=== PATIENT | female | born 1980 | race Caucasian/White ===

== ENCOUNTER 2017-04-19 00:15 | Inpatient (IN) | payer BC ==
[2017-04-19] VITALS (10 sets, daily range): BP systolic 107–133; BP diastolic 68–85
[~2017-04-19] VITALS: Ht 175.3 cm; Wt 77.1 kg
[2017-04-19 01:18] LABS: BASO % 0 % (0-3); EOS % 0 % (0-3); HEMATOCRIT 38.5 % (36.0-47.0); HEMOGLOBIN 13.3 g/dL (12.0-15.5); LYMPH % 8 % (24-48); MEAN CORPUSCULAR HEMOGLOBIN 30 pg (25-35); MEAN CORPUSCULAR HGB CONC 35 g/dL (31-37); MEAN CORPUSCULAR VOLUME 87 fL (79-100); MONO % 6 % (0-9); NEUT % 85 % (31-73); PLATELET COUNT 277 x10^3/uL (140-400); RED BLOOD COUNT 4.41 x10^6/uL (3.50-5.40); RED CELL DISTRIBUTION WIDTH 12.7 % (11.5-14.5)
[2017-04-19 01:20] LABS: BILIRUBIN,URINE NEGATIVE (NEG); GLUCOSE,URINE NEGATIVE (NEG); NITRITE,URINE NEGATIVE (NEG); PROTEIN,URINE NEGATIVE (NEG-TRACE); UROBILINOGEN,URINE 0.2 mg/dL (0.2 mg/dL)
[2017-04-19 01:25] LABS: BACTERIA,URINE FEW /HPF (0-FEW); RBC,URINE 0 /HPF (0-2)
[2017-04-19 01:26] LABS: SQUAMOUS EPITHELIAL CELL,UR FEW /LPF
[2017-04-19 01:35] LABS: CALCIUM 8.9 mg/dL (8.5-10.1); CREATININE 0.8 mg/dL (0.6-1.0); GFR 81.2; POTASSIUM 3.7 mmol/L (3.5-5.1)
[2017-04-19] MEDS: MORPHINE SULFATE 4 MG/ML DISP.SYRIN. IV PRN ×5 (01:55→09:02)
[2017-04-19] MEDS ORDERED: MORPHINE SULFATE 4 MG/ML DISP.SYRIN. IV ONE (02:00)
[2017-04-19] MEDS ORDERED: IV NORMAL SALINE 1000ML BAG 1,000 ML IV ONE (02:00)
[2017-04-19] MEDS ORDERED: ONDANSETRON PF 4 MG/2 ML VIAL. IV ONE (02:00)
--- NOTE | 2017-04-19 02:20 | RAD ---
EXAM: Abdomen and pelvis CT without intravenous contrast. HISTORY: 36-year-old female with right flank pain, hematuria, history of stones. TECHNIQUE: Computed tomographic images of the abdomen and pelvis were obtained without contrast. Multiplanar reformatting was performed. PQRS compliance statement: One or more of the following individualized dose reduction techniques were utilized for this examination: 1. Automated exposure control 2. Adjustment of the mA and/or kV according to patient size 3. Use of iterative reconstruction technique COMPARISON: None available. FINDINGS: The lung bases demonstrate no acute finding. Detailed evaluation of the intra-abdominal and pelvic organs and vascular structures is limited secondary to lack of IV contrast. Within these limitations, the liver, spleen, gallbladder, pancreas, adrenal glands and bilateral kidneys demonstrate no focal abnormality. Specifically, no urolithiasis or hydronephrosis is seen. The GI tract demonstrates no dilated bowel loops to suggest obstruction. A tubular hyperdense structure is seen extending from the posterior aspect of the cecum which may represent an appendicolith. Distal to this hyperdense structure is suggestion of a tubular, blind-ending structure measuring 18 mm in diameter with adjacent soft tissue stranding. This likely represents an inflamed appendix, which courses posterior and superiorly within the pelvis in relation to the cecum and appendicolith. No adjacent extraluminal air nor focal fluid collection to suggest abscess is seen. Evaluation is somewhat limited given lack of oral contrast and adjacent small bowel loops present within the pelvis. Small volume of free fluid is present within the dependent portion of the pelvis. The urinary bladder is grossly unremarkable. Uterus and bilateral adnexa demonstrate no definite abnormality. No intra-abdominal or pelvic free air or significant lymphadenopathy is seen. Aorta is normal in caliber. Overlying soft tissues and visualized osseous structures demonstrate no acute or suspicious finding. IMPRESSION: CT findings suggestive of acute appendicitis, as detailed above. No evidence of urolithiasis. Electronically signed by: Alondra Beaver MD (04/19/2017 2:17 AM) [facility]
[2017-04-19] MEDS ORDERED: PROMETHAZINE 12.5 MG in IV NORMAL SALINE 50ML 50 ML IV ONE (03:00)
[2017-04-19] MEDS ORDERED: PIPERACILLIN/TAZOBACTAM 3.375 GM in IV NORMAL SALINE 50ML 50 ML IV ONE (03:00)
[2017-04-19] MEDS ORDERED: ONDANSETRON PF 4 MG/2 ML VIAL. IV PRN ×3 (03:15→14:15)
[2017-04-19 04:11] LABS: PLT ESTIMATE ADEQUATE (ADEQUATE)
--- NOTE | 2017-04-19 05:42 | PHYS DOC ---
Past Medical History Past Medical History: Kidney Stone, Migraines, Other Additional Past Medical Histor: seasonal allergies Past Surgical History: Other Additional Past Surgical Histo: sinus, lithotripsy, INGUINAL HERNIA Alcohol Use: None Drug Use: None Adult General Chief Complaint Chief Complaint: FLANK PAIN HPI HPI Patient is a 36 year old right flank pain earlier today. Pain is progressive, described moderate to severe and associated with nausea and vomiting. Patient has had history of kidney stones and states current symptoms are different. No fever chills, nausea vomiting or sweats. Patient is currently on her period and reports minimal hematuria. No prior abdominal surgeries. Review of Systems Review of Systems Review symptoms as per history of present illness. All other review symptoms are negative. Current Medications Current Medications Current Medications Medications (Trade) Dose Ordered Sig/Tawnya Start Time Stop Time Status Last Admin Dose Admin Morphine Sulfate 4 mg PRN Q15MIN PRN 04/19/17 02:00 04/19/17 04:18 4 MG Ondansetron HCl (Zofran) 4 mg 1X ONCE 04/19/17 02:00 04/19/17 02:01 DC 04/19/17 01:26 4 MG Piperacillin Sod/ Tazobactam Sod 3.375 gm/Sodium Chloride 50 ml @ 100 mls/hr 1X ONCE 04/19/17 03:00 04/19/17 03:29 DC 04/19/17 03:30 100 MLS/HR Promethazine HCl 12.5 mg/Sodium Chloride 50.5 ml @ 151.5 mls/ hr ONCE ONCE 04/19/17 03:00 04/19/17 03:19 DC 04/19/17 02:52 151.5 MLS/HR Sodium Chloride 1,000 ml @ 1,000 mls/hr 1X ONCE 04/19/17 02:00 04/19/17 02:59 DC 04/19/17 01:26 1,000 MLS/HR Allergies Allergies Allergies Coded Allergies Type Severity Reaction Last Updated Verified erythromycin base Allergy Intermediate 04/19/17 No latex Allergy Intermediate 04/19/17 No menthol Allergy Intermediate 04/19/17 No methyl salicylate Allergy Intermediate 04/19/17 No prednisone Allergy Intermediate 04/19/17 No Physical Exam Physical Exam Constitutional: Well developed, well nourished, moderate discomfort secondary to pain.. [] HENT: Normocephalic, atraumatic, bilateral external ears normal, oropharynx moist, no oral exudates, nose normal. [] Eyes: PERRLA, EOMI, conjunctiva normal, no discharge. [] Neck: Normal range of motion, no tenderness, supple, no stridor. [] Cardiovascular:Heart rate regular rhythm, no murmur [] Lungs & Thorax: Bilateral breath sounds clear to auscultation [] Abdomen: Bowel sounds normal, lower abdominal pain or tenderness.. [] Skin: Warm, dry, no erythema, no rash. [] Back: No tenderness, lower lumbar vertebral pain. Pain is not reproduced with palpation or movement.. [] Extremities: No tenderness, no cyanosis, no clubbing, ROM intact, no edema. [] Neurologic: Alert and oriented X 3, normal motor function, normal sensory function, no focal deficits noted. [] Psychologic: Affect normal, judgement normal, mood normal. [] Current Patient Data Vital Signs Vital Signs Date Time Temp Pulse Resp B/P (MAP) Pulse Ox O2 Delivery O2 Flow Rate FiO2 04/19/17 03:00 84 20 111/66 (81) 97 Room Air 04/19/17 01:00 98.8 98.8 Lab Values Laboratory Tests Test 04/19/17 00:01 04/19/17 00:23 04/19/17 00:48 POC Urine HCG, Qualitative Hcg negative (Negative) White Blood Count 12.0 x10^3/uL (4.0-11.0) H Red Blood Count 4.41 x10^6/uL (3.50-5.40) Hemoglobin 13.3 g/dL (12.0-15.5) Hematocrit 38.5 % (36.0-47.0) Mean Corpuscular Volume 87 fL (79-100) Mean Corpuscular Hemoglobin 30 pg (25-35) Mean Corpuscular Hemoglobin Concent 35 g/dL (31-37) Red Cell Distribution Width 12.7 % (11.5-14.5) Platelet Count 277 x10^3/uL (140-400) Neutrophils (%) (Auto) 85 % (31-73) H Lymphocytes (%) (Auto) 8 % (24-48) L Monocytes (%) (Auto) 6 % (0-9) Eosinophils (%) (Auto) 0 % (0-3) Basophils (%) (Auto) 0 % (0-3) Neutrophils # (Auto) 10.2 x10^3uL (1.8-7.7) H Lymphocytes # (Auto) 1.0 x10^3/uL (1.0-4.8) Monocytes # (Auto) 0.7 x10^3/uL (0.0-1.1) Eosinophils # (Auto) 0.0 x10^3/uL (0.0-0.7) Basophils # (Auto) 0.0 x10^3/uL (0.0-0.2) Segmented Neutrophils % 83 % (35-66) H Band Neutrophils % 2 % (0-9) Lymphocytes % 9 % (24-48) L Monocytes % 6 % (0-10) Platelet Estimate Adequate (ADEQUATE) Sodium Level 136 mmol/L (136-145) Potassium Level 3.7 mmol/L (3.5-5.1) Chloride Level 100 mmol/L (98-107) Carbon Dioxide Level 29 mmol/L (21-32) Anion Gap 7 (6-14) Blood Urea Nitrogen 9 mg/dL (7-20) Creatinine 0.8 mg/dL (0.6-1.0) Estimated GFR (Cockcroft-Gault) 81.2 Glucose Level 140 mg/dL (70-99) H Calcium Level 8.9 mg/dL (8.5-10.1) Urine Collection Type Unknown Urine Color Yellow Urine Clarity Clear Urine pH 8.0 Urine Specific [place] 1.020 Urine Protein Negative mg/dL (NEG-TRACE) Urine Glucose (UA) Negative mg/dL (NEG) Urine Ketones (Stick) Trace mg/dL (NEG) Urine Blood Negative (NEG) Urine Nitrite Negative (NEG) Urine Bilirubin Negative (NEG) Urine Urobilinogen Dipstick 0.2 mg/dL (0.2 mg/dL) Urine Leukocyte Esterase Negative (NEG) Urine RBC 0 /HPF (0-2) Urine WBC 1-4 /HPF (0-4) Urine Squamous Epithelial Cells Few /LPF Urine Bacteria Few /HPF (0-FEW) Urine Mucus Slight /LPF Laboratory Tests 04/19/17 00:23 Laboratory Tests 04/19/17 00:23 EKG EKG [] Radiology/Procedures Radiology/Procedures [CT abdomen pelvis: Findings of acute appendicitis per radiology report.] Course & Med Decision Making Course & Med Decision Making Pertinent Labs and Imaging studies reviewed. (See chart for details) [IV antibiotics and pain medication given. Dr. Tinoco on-call for general surgery consult. Dr. Cabral agrees to admit] Amisha Disclaimer Amisha Disclaimer This electronic medical record was generated, in whole or in part, using a voice recognition dictation system. Departure Departure Impression: Primary Impression: Acute appendicitis Disposition: ADMITTED INPATIENT Condition: STABLE Referrals: NO PCP (PCP) GABRIELLE ERNANDEZ DO Apr 19, 2017 05:41
[2017-04-19] MEDS: PIPERACILLIN/TAZOBACTAM 3.375 GM in IV NORMAL SALINE 50ML 50 ML IV SCH ×3 (06:20→22:14)
[2017-04-19] MEDS: IV NORMAL SALINE 1000ML BAG 1,000 ML IV SCH ×3 (06:20→15:54)
--- NOTE | 2017-04-19 09:21 | PDOC2 ---
CONSULT Date of Consult Date of Consult DATE: 04/19/17 TIME: 09:15 Reason for Consult Reason for Consult: abd pain, appendicitis Referring Physician Referring Physician: Roe Identification/Chief Complaint Chief Complaint right flank pain Problems: Source Source: Patient History of Present Illness Reason for Visit: 36 yo F with c/o right lower quadrant abdominal pain, flank pain for one day. Associated N/V. No previous episodes although notes history of kidney stones, this is different pain. She feels much better since admission, although still has some pain. Past Medical History CENTRAL NERVOUS SYSTEM: Migraine Rheumatologic: Other (mulitple allergies) ENT: Sincusitis Past Surgical History Past Surgical History: Other (kidney stone removal, groin hernia repair as child, multiple sinus surgeries) Family History Family History: No Significant Social History No ALCOHOL: occassional Drugs: None Lives: with Family Current Medications Current Medications Current Medications Ondansetron HCl (Zofran) 4 mg 1X ONCE IV Last administered on 04/19/17 01:26 ; Start 04/19/17 at 02:00; Stop 04/19/17 at 02:01; Status DC Sodium Chloride 1,000 ml @ 1,000 mls/hr 1X ONCE IV Last administered on 01:26; Start 04/19/17 at 02:00; Stop 04/19/17 at 02:59; Status DC Morphine Sulfate 4 mg 1X ONCE IV Last administered on 04/19/17 01:26; Start 04/19/17 at 02:00; Stop 04/19/17 at 02:01; Status DC Morphine Sulfate 4 mg PRN Q15MIN PRN IV SEVERE PAIN Last administered on 04:18; Start 04/19/17 at 02:00 Promethazine HCl 12.5 mg/Sodium Chloride 50.5 ml @ 151.5 mls/ hr ONCE ONCE IV Last administered on 04/19/17 02:52; Start 04/19/17 at 03:00; Stop 04/19/17 at 03:19; Status DC Piperacillin Sod/ Tazobactam Sod 3.375 gm/Sodium Chloride 50 ml @ 100 mls/hr 1X ONCE IV Last administered on 04/19/17 03:30; Start 04/19/17 at 03:00; Stop 04/19/17 at 03:29; Status DC Ondansetron HCl (Zofran) 4 mg PRN Q8HRS PRN IV NAUSEA/VOMITING Last administered on 04/19/17 09:01; Start 04/19/17 at 03:15; Stop 04/20/17 at 03:14 Morphine Sulfate 2 mg PRN Q2HR PRN IV SEVERE PAIN Last administered on 09:02; Start 04/19/17 at 03:15; Stop 04/20/17 at 03:14 Sodium Chloride 1,000 ml @ 150 mls/hr Q6H40M IV Last administered on 06:20; Start 04/19/17 at 03:30; Stop 04/20/17 at 03:29 Piperacillin Sod/ Tazobactam Sod 3.375 gm/Sodium Chloride 50 ml @ 100 mls/hr Q8HRS IV Last administered on 04/19/17 06:20; Start 04/19/17 at 06:00 Cefoxitin Sodium 50 ml @ 100 mls/hr OC PROC IV ; Start 04/19/17 at 09:00; Stop 04/19/17 at 09:29 Allergies Allergies: Coded Allergies: Sulfa (Sulfonamide Antibiotics) (Verified Allergy, Intermediate, 04/19/17) erythromycin base (Unverified Allergy, Intermediate, 04/19/17) latex (Unverified Allergy, Intermediate, 04/19/17) menthol (Unverified Allergy, Intermediate, 04/19/17) methyl salicylate (Unverified Allergy, Intermediate, 04/19/17) prednisone (Unverified Allergy, Intermediate, 04/19/17) ROS Gastrointestinal: Yes Nausea, Yes Vomiting, Yes Abdominal Pain Physical Exam General: Alert, Oriented X3, Cooperative, No acute distress HEENT: Atraumatic, EOMI, Mucous membr. moist/pink Lungs: Normal air movement Abdomen: Soft, Other (mild TTP RLQ and right flank) Extremities: No clubbing, No cyanosis Skin: No rashes, No breakdown Neuro: Normal speech, Sensation intact Psych/Mental Status: Mental status NL, Mood NL MUSCULOSKELETAL: No joint tenderness, No deformity Vitals VITALS Vital Signs Date Time Temp Pulse Resp B/P (MAP) Pulse Ox O2 Delivery O2 Flow Rate FiO2 04/19/17 07:00 98.7 92 16 113/71 (85) 100 Room Air 98.7 Labs Labs Laboratory Tests Test 04/19/17 00:01 04/19/17 00:23 04/19/17 00:48 Bedside Urine HCG, Qualitative Hcg negative (Negative) White Blood Count 12.0 x10^3/uL (4.0-11.0) Red Blood Count 4.41 x10^6/uL (3.50-5.40) Hemoglobin 13.3 g/dL (12.0-15.5) Hematocrit 38.5 % (36.0-47.0) Mean Corpuscular Volume 87 fL (79-100) Mean Corpuscular Hemoglobin 30 pg (25-35) Mean Corpuscular Hemoglobin Concent 35 g/dL (31-37) Red Cell Distribution Width 12.7 % (11.5-14.5) Platelet Count 277 x10^3/uL (140-400) Neutrophils (%) (Auto) 85 % (31-73) Lymphocytes (%) (Auto) 8 % (24-48) Monocytes (%) (Auto) 6 % (0-9) Eosinophils (%) (Auto) 0 % (0-3) Basophils (%) (Auto) 0 % (0-3) Neutrophils # (Auto) 10.2 x10^3uL (1.8-7.7) Lymphocytes # (Auto) 1.0 x10^3/uL (1.0-4.8) Monocytes # (Auto) 0.7 x10^3/uL (0.0-1.1) Eosinophils # (Auto) 0.0 x10^3/uL (0.0-0.7) Basophils # (Auto) 0.0 x10^3/uL (0.0-0.2) Segmented Neutrophils % 83 % (35-66) Band Neutrophils % 2 % (0-9) Lymphocytes % 9 % (24-48) Monocytes % 6 % (0-10) Platelet Estimate Adequate (ADEQUATE) Sodium Level 136 mmol/L (136-145) Potassium Level 3.7 mmol/L (3.5-5.1) Chloride Level 100 mmol/L (98-107) Carbon Dioxide Level 29 mmol/L (21-32) Anion Gap 7 (6-14) Blood Urea Nitrogen 9 mg/dL (7-20) Creatinine 0.8 mg/dL (0.6-1.0) Estimated GFR (Cockcroft-Gault) 81.2 Glucose Level 140 mg/dL (70-99) Calcium Level 8.9 mg/dL (8.5-10.1) Urine Collection Type Unknown Urine Color Yellow Urine Clarity Clear Urine pH 8.0 Urine Specific [place] 1.020 Urine Protein Negative mg/dL (NEG-TRACE) Urine Glucose (UA) Negative mg/dL (NEG) Urine Ketones (Stick) Trace mg/dL (NEG) Urine Blood Negative (NEG) Urine Nitrite Negative (NEG) Urine Bilirubin Negative (NEG) Urine Urobilinogen Dipstick 0.2 mg/dL (0.2 mg/dL) Urine Leukocyte Esterase Negative (NEG) Urine RBC 0 /HPF (0-2) Urine WBC 1-4 /HPF (0-4) Urine Squamous Epithelial Cells Few /LPF Urine Bacteria Few /HPF (0-FEW) Urine Mucus Slight /LPF Laboratory Tests Test 04/19/17 00:01 04/19/17 00:23 04/19/17 00:48 Bedside Urine HCG, Qualitative Hcg negative (Negative) White Blood Count 12.0 x10^3/uL (4.0-11.0) Red Blood Count 4.41 x10^6/uL (3.50-5.40) Hemoglobin 13.3 g/dL (12.0-15.5) Hematocrit 38.5 % (36.0-47.0) Mean Corpuscular Volume 87 fL (79-100) Mean Corpuscular Hemoglobin 30 pg (25-35) Mean Corpuscular Hemoglobin Concent 35 g/dL (31-37) Red Cell Distribution Width 12.7 % (11.5-14.5) Platelet Count 277 x10^3/uL (140-400) Neutrophils (%) (Auto) 85 % (31-73) Lymphocytes (%) (Auto) 8 % (24-48) Monocytes (%) (Auto) 6 % (0-9) Eosinophils (%) (Auto) 0 % (0-3) Basophils (%) (Auto) 0 % (0-3) Neutrophils # (Auto) 10.2 x10^3uL (1.8-7.7) Lymphocytes # (Auto) 1.0 x10^3/uL (1.0-4.8) Monocytes # (Auto) 0.7 x10^3/uL (0.0-1.1) Eosinophils # (Auto) 0.0 x10^3/uL (0.0-0.7) Basophils # (Auto) 0.0 x10^3/uL (0.0-0.2) Segmented Neutrophils % 83 % (35-66) Band Neutrophils % 2 % (0-9) Lymphocytes % 9 % (24-48) Monocytes % 6 % (0-10) Platelet Estimate Adequate (ADEQUATE) Sodium Level 136 mmol/L (136-145) Potassium Level 3.7 mmol/L (3.5-5.1) Chloride Level 100 mmol/L (98-107) Carbon Dioxide Level 29 mmol/L (21-32) Anion Gap 7 (6-14) Blood Urea Nitrogen 9 mg/dL (7-20) Creatinine 0.8 mg/dL (0.6-1.0) Estimated GFR (Cockcroft-Gault) 81.2 Glucose Level 140 mg/dL (70-99) Calcium Level 8.9 mg/dL (8.5-10.1) Urine Collection Type Unknown Urine Color Yellow Urine Clarity Clear Urine pH 8.0 Urine Specific [place] 1.020 Urine Protein Negative mg/dL (NEG-TRACE) Urine Glucose (UA) Negative mg/dL (NEG) Urine Ketones (Stick) Trace mg/dL (NEG) Urine Blood Negative (NEG) Urine Nitrite Negative (NEG) Urine Bilirubin Negative (NEG) Urine Urobilinogen Dipstick 0.2 mg/dL (0.2 mg/dL) Urine Leukocyte Esterase Negative (NEG) Urine RBC 0 /HPF (0-2) Urine WBC 1-4 /HPF (0-4) Urine Squamous Epithelial Cells Few /LPF Urine Bacteria Few /HPF (0-FEW) Urine Mucus Slight /LPF Images Images Ct c/w appendicitis Assessment/Plan Assessment/Plan Appendicitis cont abx and pain meds, improved on this regimen will plan laparoscopic appendectomy versus open R/B/A d/w pt and pt's father. Risks, including, but not limited to: bleeding, infection, damage to surrounding structures, risk of anesthesia. They appear to understand, their questions are answered and they agree to proceed. Thank you for allowing consultation with this pleasant patient. MARCELA HOOVER MD Apr 19, 2017 09:21
[2017-04-19] MEDS ORDERED: IV RINGERS,LACTATED 1000ML 1,000 ML IV SCH (10:17)
[2017-04-19] MEDS ORDERED: LIDOCAINE 1% 1 ML SYRINGE. ID PRN (10:30)
[2017-04-19] MEDS ORDERED: PROCHLORPERAZINE 10 MG/2 ML VIAL. IV PRN (10:30)
[2017-04-19] MEDS ORDERED: fentaNYL PF VIAL 100 MCG/2 ML VIAL IV PRN (10:30)
[2017-04-19] MEDS ORDERED: HYDROmorphone 2 MG/ML VIAL IV PRN (10:30)
[2017-04-19] MEDS ORDERED: MORPHINE SULFATE 2 MG/ML DISP.SYRIN. IV PRN ×2 (10:30→12:15)
--- NOTE | 2017-04-19 10:56 | ACF ---
Admit Criteria Forms Admit Criteria Forms Admit Criteria Forms ABDOMINAL PAIN Clinical Indications for Admission to Inpatient Care ( [place]/check or initial the applicable condition/criteria): Admission is indicated for ANY ONE of the following (1)(2)(3)(4)(5)(6): [ ]I. Surgery needed that cannot be performed on ambulatory basis [ ]II. Peritoneal signs present (eg, rebound tenderness, rigidity) [ ]III. Evaluation requires patient to not eat or drink for extended period ( eg, more than 24 hours). [X ]IV. Inpatient admission required[B] rather than observation care (see Abdominal Pain: Observation Care guideline as appropriate) because of ANY ONE of the following(7)(8)(9): [ ] a) Hemodynamic instability [ ]b) Severe pain requiring acute inpatient management [X]c) Identification of etiology or finding that requires inpatient care (eg, aortic dissection, free air,bowel ischemia)(10) [ ]d) Absent bowel sounds with complete ileus (11) [ ]e) Signs of intestinal obstruction[C] [ ]f) Suspected toxic [place] [ ]g) Severe electrolyte abnormalities requiring inpatient care [ ]h) High fever or infection requiring inpatient admission as indicated by ANY ONE of the following (12)(13): [ ]i) Appropriate outpatient or observation care antimicrobial treatment unavailable, not effective, or not feasible [ ]ii) Documented bacteremia [ ]iii) Temperature greater than 104.9 degrees F (40.5 degrees C) (oral) [ ]iv) Temperature greater than 103.1 degrees F (39.5 degrees C) ( oral) or less than 96.8 degrees F (36 degrees C) (rectal) that does not respond to all emergency treatment measures [ ]i) IV fluid required rather than oral rehydration to replace significant ongoing (eg, for greater than 24 hours) losses (greater than 3 L/m2 per day)(14)(15) [ ]j) Percutaneous or open drainage (eg, abscess, biliary tract) procedures [ ]k) Parenteral nutrition regimen that must be implemented on inpatient basis [ ]l) Other condition, treatment, or monitoring requiring inpatient admission Extended stay beyond goal length of stay may be needed for (1)(3)(4)(10)(16): [ ]a) Surgery (e.g., colectomy, revascularization procedure) [ ]b) Persistent abdominal pain with suspected intra-abdominal process [ ]c) Diagnosed condition requiring continued stay (e.g., pancreatitis, complicated diverticulitis) The original [facility] [employer] content created by [facility] has been revised. The portions of the content which have been revised are identified through the use of italic text, and [facility] has neither reviewed nor approved the modified material.All other unmodified content is copyright [facility]. Please see references footnoted in the original [facility] [employer] edition 2014 IRIS DEE Apr 19, 2017 10:56
[2017-04-19] MEDS ORDERED: ACETAMINOPHEN 325 MG TABLET. PO PRN (12:15)
[2017-04-19] MEDS ORDERED: hydrALAZINE 20 MG/ML VIAL. IVP PRN (12:15)
[2017-04-19] MEDS ORDERED: DOCUSATE SODIUM 100 MG CAPSULE. PO PRN (12:15)
--- NOTE | 2017-04-19 12:19 | PDOC1 ---
History and Physical Date of Admission Date of Admission 04/19/17 Identification/Chief Complaint Chief Complaint right flank pain Problems: Source Source: Chart review, Patient History of Present Illness History of Present Illness HPI HPI Patient is a 36 year old right flank pain yesterday. She had similar pain 2 weeks ago. Pt has h/o kidney stone so she thought it could be and didnot seek for medical care last time. The pain is located at RLQ, and right flank, not radiating to right groin, 8/10 , constant, with N/V. no fever, chills, cough or sob. CT showed acute appendicitis, no kidney stone. had BM yesterday , normal. Past Medical History CENTRAL NERVOUS SYSTEM: Migraine Rheumatologic: Other (mulitple allergies) ENT: Sincusitis Past Surgical History Past Surgical History: Other (kidney stone removal, groin hernia repair as child, multiple sinus surgeries) Family History Family History: No Significant Social History Smoke: No ALCOHOL: occassional Drugs: None Current Medications Current Medications Current Medications Medications (Trade) Dose Ordered Sig/Tawnya Start Time Stop Time Status Last Admin Dose Admin Cefoxitin Sodium 50 ml @ 100 mls/hr OC PROC 04/19/17 09:00 04/19/17 09:29 DC Fentanyl Citrate (Fentanyl 2ml Vial) 50 mcg PRN Q5MIN PRN 04/19/17 10:30 04/20/17 10:29 Hydromorphone HCl (Dilaudid) 0.5 mg PRN Q10MIN PRN 04/19/17 10:30 04/20/17 10:29 Lidocaine HCl 2 ml PRN 1X PRN 04/19/17 10:30 04/20/17 10:29 Morphine Sulfate 1 mg PRN Q10MIN PRN 04/19/17 10:30 04/20/17 10:29 Ondansetron HCl (Zofran) 4 mg PRN Q6HRS PRN 04/19/17 10:30 04/20/17 10:29 Piperacillin Sod/ Tazobactam Sod 3.375 gm/Sodium Chloride 50 ml @ 100 mls/hr Q8HRS 04/19/17 06:00 04/19/17 06:20 100 MLS/HR Prochlorperazine Edisylate (Compazine) 5 mg PACU PRN PRN 04/19/17 10:30 04/20/17 10:29 Promethazine HCl 12.5 mg/Sodium Chloride 50.5 ml @ 151.5 mls/ hr ONCE ONCE 04/19/17 03:00 04/19/17 03:19 DC 04/19/17 02:52 151.5 MLS/HR Ringer's Solution 1,000 ml @ 30 mls/hr Q24H 04/19/17 10:17 04/19/17 22:16 Sodium Chloride 1,000 ml @ 150 mls/hr Q6H40M 04/19/17 03:30 04/20/17 03:29 04/19/17 06:20 150 MLS/HR Allergies Allergies Allergies Coded Allergies Type Severity Reaction Last Updated Verified Sulfa (Sulfonamide Antibiotics) Allergy Intermediate 04/19/17 Yes erythromycin base Allergy Intermediate 04/19/17 No latex Allergy Intermediate 04/19/17 No menthol Allergy Intermediate 04/19/17 No methyl salicylate Allergy Intermediate 04/19/17 No prednisone Allergy Intermediate 04/19/17 No ROS Review of System CONSTITUTIONAL: No fever or chills EYES: No recent changes SKIN: No rash or itching CARDIOVASCULAR: No chest pain, syncope, palpitations, or edema RESPIRATORY: No SOB or cough GASTROINTESTINAL: + nausea, vomiting or abdominal pain NEUROLOGICAL: No headaches or weakness ENDOCRINE: No cold or heat intolerance GENITOURINARY: No urgency or frequency of urination MUSCULOSKELETAL: No back pain or joint pain LYMPHATICS: No enlarged lymph nodes PSYCHIATRIC: No anxiety or depression Physical Exam Physical Exam GEN.: No apparent distress. Alert and oriented. HEENT: Head is normocephalic, atraumatic NECK: Supple. LUNGS: Clear to auscultation. HEART: RRR, S1, S2 present. Peripheral pulses intact ABDOMEN: Soft, Positive bowel sounds. RLQ mild tenderness, no guarding or rebound. EXTREMITIES: Without any cyanosis. NEUROLOGIC: Normal speech, normal tone PSYCHIATRIC: Normal affect, normal mood. SKIN: No ulcerations Vitals Vitals Vital Signs Date Time Temp Pulse Resp B/P (MAP) Pulse Ox O2 Delivery O2 Flow Rate FiO2 04/19/17 11:00 97.7 89 16 107/68 (81) 100 Room Air 97.7 Labs Labs Laboratory Tests Test 04/19/17 00:01 04/19/17 00:23 8/23/17 00:48 Bedside Urine HCG, Qualitative Hcg negative (Negative) White Blood Count 12.0 x10^3/uL (4.0-11.0) Red Blood Count 4.41 x10^6/uL (3.50-5.40) Hemoglobin 13.3 g/dL (12.0-15.5) Hematocrit 38.5 % (36.0-47.0) Mean Corpuscular Volume 87 fL (79-100) Mean Corpuscular Hemoglobin 30 pg (25-35) Mean Corpuscular Hemoglobin Concent 35 g/dL (31-37) Red Cell Distribution Width 12.7 % (11.5-14.5) Platelet Count 277 x10^3/uL (140-400) Neutrophils (%) (Auto) 85 % (31-73) Lymphocytes (%) (Auto) 8 % (24-48) Monocytes (%) (Auto) 6 % (0-9) Eosinophils (%) (Auto) 0 % (0-3) Basophils (%) (Auto) 0 % (0-3) Neutrophils # (Auto) 10.2 x10^3uL (1.8-7.7) Lymphocytes # (Auto) 1.0 x10^3/uL (1.0-4.8) Monocytes # (Auto) 0.7 x10^3/uL (0.0-1.1) Eosinophils # (Auto) 0.0 x10^3/uL (0.0-0.7) Basophils # (Auto) 0.0 x10^3/uL (0.0-0.2) Segmented Neutrophils % 83 % (35-66) Band Neutrophils % 2 % (0-9) Lymphocytes % 9 % (24-48) Monocytes % 6 % (0-10) Platelet Estimate Adequate (ADEQUATE) Sodium Level 136 mmol/L (136-145) Potassium Level 3.7 mmol/L (3.5-5.1) Chloride Level 100 mmol/L (98-107) Carbon Dioxide Level 29 mmol/L (21-32) Anion Gap 7 (6-14) Blood Urea Nitrogen 9 mg/dL (7-20) Creatinine 0.8 mg/dL (0.6-1.0) Estimated GFR (Cockcroft-Gault) 81.2 Glucose Level 140 mg/dL (70-99) Calcium Level 8.9 mg/dL (8.5-10.1) Urine Collection Type Unknown Urine Color Yellow Urine Clarity Clear Urine pH 8.0 Urine Specific [place] 1.020 Urine Protein Negative mg/dL (NEG-TRACE) Urine Glucose (UA) Negative mg/dL (NEG) Urine Ketones (Stick) Trace mg/dL (NEG) Urine Blood Negative (NEG) Urine Nitrite Negative (NEG) Urine Bilirubin Negative (NEG) Urine Urobilinogen Dipstick 0.2 mg/dL (0.2 mg/dL) Urine Leukocyte Esterase Negative (NEG) Urine RBC 0 /HPF (0-2) Urine WBC 1-4 /HPF (0-4) Urine Squamous Epithelial Cells Few /LPF Urine Bacteria Few /HPF (0-FEW) Urine Mucus Slight /LPF Laboratory Tests Test 04/19/17 00:01 04/19/17 00:23 04/19/17 00:48 Bedside Urine HCG, Qualitative Hcg negative (Negative) White Blood Count 12.0 x10^3/uL (4.0-11.0) Red Blood Count 4.41 x10^6/uL (3.50-5.40) Hemoglobin 13.3 g/dL (12.0-15.5) Hematocrit 38.5 % (36.0-47.0) Mean Corpuscular Volume 87 fL (79-100) Mean Corpuscular Hemoglobin 30 pg (25-35) Mean Corpuscular Hemoglobin Concent 35 g/dL (31-37) Red Cell Distribution Width 12.7 % (11.5-14.5) Platelet Count 277 x10^3/uL (140-400) Neutrophils (%) (Auto) 85 % (31-73) Lymphocytes (%) (Auto) 8 % (24-48) Monocytes (%) (Auto) 6 % (0-9) Eosinophils (%) (Auto) 0 % (0-3) Basophils (%) (Auto) 0 % (0-3) Neutrophils # (Auto) 10.2 x10^3uL (1.8-7.7) Lymphocytes # (Auto) 1.0 x10^3/uL (1.0-4.8) Monocytes # (Auto) 0.7 x10^3/uL (0.0-1.1) Eosinophils # (Auto) 0.0 x10^3/uL (0.0-0.7) Basophils # (Auto) 0.0 x10^3/uL (0.0-0.2) Segmented Neutrophils % 83 % (35-66) Band Neutrophils % 2 % (0-9) Lymphocytes % 9 % (24-48) Monocytes % 6 % (0-10) Platelet Estimate Adequate (ADEQUATE) Sodium Level 136 mmol/L (136-145) Potassium Level 3.7 mmol/L (3.5-5.1) Chloride Level 100 mmol/L (98-107) Carbon Dioxide Level 29 mmol/L (21-32) Anion Gap 7 (6-14) Blood Urea Nitrogen 9 mg/dL (7-20) Creatinine 0.8 mg/dL (0.6-1.0) Estimated GFR (Cockcroft-Gault) 81.2 Glucose Level 140 mg/dL (70-99) Calcium Level 8.9 mg/dL (8.5-10.1) Urine Collection Type Unknown Urine Color Yellow Urine Clarity Clear Urine pH 8.0 Urine Specific [place] 1.020 Urine Protein Negative mg/dL (NEG-TRACE) Urine Glucose (UA) Negative mg/dL (NEG) Urine Ketones (Stick) Trace mg/dL (NEG) Urine Blood Negative (NEG) Urine Nitrite Negative (NEG) Urine Bilirubin Negative (NEG) Urine Urobilinogen Dipstick 0.2 mg/dL (0.2 mg/dL) Urine Leukocyte Esterase Negative (NEG) Urine RBC 0 /HPF (0-2) Urine WBC 1-4 /HPF (0-4) Urine Squamous Epithelial Cells Few /LPF Urine Bacteria Few /HPF (0-FEW) Urine Mucus Slight /LPF VTE Prophylaxis Ordered VTE Prophylaxis Devices: No VTE Pharmacological Prophylaxi: No Assessment/Plan Assessment/Plan abd pain with N/V. 2/2 acute appendicitis h/o kidney stone migraine SIRS, no sepsis plan: sx consulted, lap sx today npo ivf pain control need home meds dvt ppx tmr labs tmr ARIEL MUNOZ MD Apr 19, 2017 12:19
[2017-04-19] MEDS ORDERED: MORPHINE SULFATE 4 MG/ML DISP.SYRIN. IV PRN (12:30)
[2017-04-19] MEDS ORDERED: fentaNYL PF VIAL 100 MCG/2 ML VIAL ONE ×3 (12:45→14:16)
[2017-04-19] MEDS: fentaNYL PF VIAL 100 MCG/2 ML VIAL IV PRN ×5 (12:49→15:14)
[2017-04-19] MEDS ORDERED: PROPOFOL 20 ML IV ONE (12:54)
[2017-04-19] MEDS ORDERED: MIDAZOLAM HCL/PF 2 MG/2 ML VIAL. ONE (12:54)
[2017-04-19] MEDS ORDERED: DESFLURANE 61 TO 120 MINUTES IH ONE (12:54)
[2017-04-19] MEDS ORDERED: LIDOCAINE 2% PF Vial for OR 5 ML VIAL. ONE (12:55)
[2017-04-19] MEDS ORDERED: DEXAMETHASONE SOD PHOS 20 MG/5 ML VIAL. ONE (12:55)
[2017-04-19] MEDS ORDERED: ONDANSETRON PF 4 MG/2 ML VIAL. ONE (12:55)
[2017-04-19] MEDS ORDERED: BUPIVAC MPF-EPI 0.5%-1:200000 30 ML VIAL. ONE (12:56)
[2017-04-19] MEDS ORDERED: ROCURONIUM 100 MG/10 ML VIAL. ONE (12:56)
[2017-04-19] MEDS ORDERED: NEOSTIGMINE 10 MG/10 ML VIAL. ONE (13:38)
[2017-04-19] MEDS ORDERED: GLYCOPYRROLATE 1 MG/5 ML VIAL. ONE (13:39)
[2017-04-19] MEDS ORDERED: 0.9 % SODIUM CHLORIDE 10 ML DISP.SYRIN. IV PRN (14:15)
[2017-04-19] MEDS ORDERED: PROCHLORPERAZINE 10 MG/2 ML VIAL. ONE (14:15)
--- NOTE | 2017-04-19 14:24 | PDOC4 ---
OPERATIVE NOTE Date: Date: Apr 19, 2017 Pre-Op Diagnosis: Appendicitis Post-Op Diagnosis: same Procedure Performed: Laparoscopic appendectomy Surgeon: Dillan Hoover Anesthesia Type: GETA plus local Blood Loss: 50 Specimans Obtained: appendix Findings: indurated, enlarge appendix, no obvious perforation Complications: none Operative Note: Patient was taken to the OR, induced under GETA and prepped in the usual fashion. 5 mm port placed in left lower quadrant and suprapubic area and 12 port placed in supraumbilical area, all under laparoscopic guidance. The abdominal cavity was otherwise unremarkable. The right colon was very mobile. Appendix was large and indurated, no evidence of perforation. Defect created in the mesoappendix. General load [place] taken across the base of the appendix and vascular load across the mesoappendix. Clips placed on staple lines for additional hemostasis. Endocatch bag used to deliver appendix. Copious irrigation. No evidence of bleeding or other pathology. Ports removed without difficulty. Fascia repaired with 0 vicryl. Skin repaired with 4 0 monocryl. Dressing applied. Patient tolerated procedure well. Stable to PACU. All counts correct. No immediate complications. DILLAN HOOVER MD Apr 19, 2017 14:24
[2017-04-19] MEDS: IV RINGERS,LACTATED 1000ML 1,000 ML IV SCH (15:00)
[2017-04-19] MEDS: HYDROcodone/APAP 5/325MG 1 TAB TABLET PO PRN ×2 (15:48→19:46)
[2017-04-19] MEDS: traMADol 50 MG TABLET PO PRN (18:04)
[2017-04-19] MEDS: ONDANSETRON PF 4 MG/2 ML VIAL. IV PRN (19:38)
[2017-04-19] MEDS: DOCUSATE SODIUM 100 MG CAPSULE. PO SCH (21:00)
[2017-04-20] MEDS: traMADol 50 MG TABLET PO PRN ×2 (00:41→20:28)
[2017-04-20] MEDS: IV NORMAL SALINE 1000ML BAG 1,000 ML IV SCH (00:42)
[2017-04-20] MEDS: IV RINGERS,LACTATED 1000ML 1,000 ML IV SCH ×3 (00:42→20:42)
[2017-04-20 03:00] VITALS: BP 119/80
[2017-04-20] MEDS: ONDANSETRON PF 4 MG/2 ML VIAL. IV PRN ×2 (06:18→12:07)
[2017-04-20] MEDS: PIPERACILLIN/TAZOBACTAM 3.375 GM in IV NORMAL SALINE 50ML 50 ML IV SCH ×3 (06:19→22:47)
[2017-04-20 07:39] VITALS: BP 132/84
[2017-04-20] MEDS: DOCUSATE SODIUM 100 MG CAPSULE. PO SCH ×2 (08:28→20:28)
[2017-04-20] MEDS: HYDROcodone/APAP 5/325MG 1 TAB TABLET PO PRN ×2 (08:28→17:18)
[2017-04-20 09:22] LABS: BASO % 0 % (0-3); EOS % 0 % (0-3); HEMATOCRIT 35.6 % (36.0-47.0); HEMOGLOBIN 12.4 g/dL (12.0-15.5); LYMPH # 1.2 x10^3/uL (1.0-4.8); LYMPH % 11 % (24-48); MEAN CORPUSCULAR HEMOGLOBIN 30 pg (25-35); MEAN CORPUSCULAR HGB CONC 35 g/dL (31-37); MEAN CORPUSCULAR VOLUME 86 fL (79-100); MONO % 10 % (0-9); NEUT % 79 % (31-73); PLATELET COUNT 243 x10^3/uL (140-400); RED BLOOD COUNT 4.16 x10^6/uL (3.50-5.40); RED CELL DISTRIBUTION WIDTH 12.9 % (11.5-14.5); WHITE BLOOD COUNT 11.5 x10^3/uL (4.0-11.0)
[2017-04-20 09:45] LABS: CALCIUM 8.4 mg/dL (8.5-10.1); CREATININE 0.6 mg/dL (0.6-1.0); GFR 113.1; POTASSIUM 3.2 mmol/L (3.5-5.1)
--- NOTE | 2017-04-20 11:08 | PDOC ---
PROGRESS NOTES Chief Complaint Chief Complaint 1. s/p lap appy POD # 1 (04/19) 2. Post op pain 3. COnstipation History of Present Illness History of Present Illness Sore from post op site Emesis last night NOt interested in eating food yet Did walk to the bathroom today per mother Rpt WBC 11,5 from 12 on IV zosyn NO fevers PLAn: Dc IV morphine IS Add ibuprofen RTC ADAT Add percocet for pain Hopefully home chayo once up and about and less pain dw mother Vitals Vitals Vital Signs Date Time Temp Pulse Resp B/P (MAP) Pulse Ox O2 Delivery O2 Flow Rate FiO2 04/20/17 08:28 16 Room Air 04/20/17 07:39 97.7 81 132/84 (100) 100 97.7 04/19/17 14:02 10 Physical Exam General: Alert, Oriented X3, Cooperative, No acute distress Heart: Regular rate, Normal S1 Lungs: Clear Abdomen: Soft, Other (mild TTP RLQ and right flank) Extremities: No clubbing, No cyanosis Skin: No rashes, No breakdown Labs LABS Laboratory Tests Test 04/19/17 12:41 04/20/17 09:15 Glucose (Fingerstick) 97 mg/dL (70-99) White Blood Count 11.5 x10^3/uL (4.0-11.0) Red Blood Count 4.16 x10^6/uL (3.50-5.40) Hemoglobin 12.4 g/dL (12.0-15.5) Hematocrit 35.6 % (36.0-47.0) Mean Corpuscular Volume 86 fL (79-100) Mean Corpuscular Hemoglobin 30 pg (25-35) Mean Corpuscular Hemoglobin Concent 35 g/dL (31-37) Red Cell Distribution Width 12.9 % (11.5-14.5) Platelet Count 243 x10^3/uL (140-400) Neutrophils (%) (Auto) 79 % (31-73) Lymphocytes (%) (Auto) 11 % (24-48) Monocytes (%) (Auto) 10 % (0-9) Eosinophils (%) (Auto) 0 % (0-3) Basophils (%) (Auto) 0 % (0-3) Neutrophils # (Auto) 9.0 x10^3uL (1.8-7.7) Lymphocytes # (Auto) 1.2 x10^3/uL (1.0-4.8) Monocytes # (Auto) 1.2 x10^3/uL (0.0-1.1) Eosinophils # (Auto) 0.0 x10^3/uL (0.0-0.7) Basophils # (Auto) 0.0 x10^3/uL (0.0-0.2) Sodium Level 135 mmol/L (136-145) Potassium Level 3.2 mmol/L (3.5-5.1) Chloride Level 100 mmol/L (98-107) Carbon Dioxide Level 25 mmol/L (21-32) Anion Gap 10 (6-14) Blood Urea Nitrogen 4 mg/dL (7-20) Creatinine 0.6 mg/dL (0.6-1.0) Estimated GFR (Cockcroft-Gault) 113.1 Glucose Level 126 mg/dL (70-99) Calcium Level 8.4 mg/dL (8.5-10.1) Review of Systems Review of Systems nausea, abd pain, all else is neg Comment Review of Relevant I have reviewed the following items ralph (where applicable) has been applied. Labs Laboratory Tests Test 04/19/17 00:01 04/19/17 00:23 04/19/17 00:48 04/19/17 12:41 Bedside Urine HCG, Qualitative Hcg negative (Negative) White Blood Count 12.0 x10^3/uL (4.0-11.0) Red Blood Count 4.41 x10^6/uL (3.50-5.40) Hemoglobin 13.3 g/dL (12.0-15.5) Hematocrit 38.5 % (36.0-47.0) Mean Corpuscular Volume 87 fL (79-100) Mean Corpuscular Hemoglobin 30 pg (25-35) Mean Corpuscular Hemoglobin Concent 35 g/dL (31-37) Red Cell Distribution Width 12.7 % (11.5-14.5) Platelet Count 277 x10^3/uL (140-400) Neutrophils (%) (Auto) 85 % (31-73) Lymphocytes (%) (Auto) 8 % (24-48) Monocytes (%) (Auto) 6 % (0-9) Eosinophils (%) (Auto) 0 % (0-3) Basophils (%) (Auto) 0 % (0-3) Neutrophils # (Auto) 10.2 x10^3uL (1.8-7.7) Lymphocytes # (Auto) 1.0 x10^3/uL (1.0-4.8) Monocytes # (Auto) 0.7 x10^3/uL (0.0-1.1) Eosinophils # (Auto) 0.0 x10^3/uL (0.0-0.7) Basophils # (Auto) 0.0 x10^3/uL (0.0-0.2) Segmented Neutrophils % 83 % (35-66) Band Neutrophils % 2 % (0-9) Lymphocytes % 9 % (24-48) Monocytes % 6 % (0-10) Platelet Estimate Adequate (ADEQUATE) Sodium Level 136 mmol/L (136-145) Potassium Level 3.7 mmol/L (3.5-5.1) Chloride Level 100 mmol/L (98-107) Carbon Dioxide Level 29 mmol/L (21-32) Anion Gap 7 (6-14) Blood Urea Nitrogen 9 mg/dL (7-20) Creatinine 0.8 mg/dL (0.6-1.0) Estimated GFR (Cockcroft-Gault) 81.2 Glucose Level 140 mg/dL (70-99) Calcium Level 8.9 mg/dL (8.5-10.1) Urine Collection Type Unknown Urine Color Yellow Urine Clarity Clear Urine pH 8.0 Urine Specific [place] 1.020 Urine Protein Negative mg/dL (NEG-TRACE) Urine Glucose (UA) Negative mg/dL (NEG) Urine Ketones (Stick) Trace mg/dL (NEG) Urine Blood Negative (NEG) Urine Nitrite Negative (NEG) Urine Bilirubin Negative (NEG) Urine Urobilinogen Dipstick 0.2 mg/dL (0.2 mg/dL) Urine Leukocyte Esterase Negative (NEG) Urine RBC 0 /HPF (0-2) Urine WBC 1-4 /HPF (0-4) Urine Squamous Epithelial Cells Few /LPF Urine Bacteria Few /HPF (0-FEW) Urine Mucus Slight /LPF Glucose (Fingerstick) 97 mg/dL (70-99) Test 04/20/17 09:15 White Blood Count 11.5 x10^3/uL (4.0-11.0) Red Blood Count 4.16 x10^6/uL (3.50-5.40) Hemoglobin 12.4 g/dL (12.0-15.5) Hematocrit 35.6 % (36.0-47.0) Mean Corpuscular Volume 86 fL (79-100) Mean Corpuscular Hemoglobin 30 pg (25-35) Mean Corpuscular Hemoglobin Concent 35 g/dL (31-37) Red Cell Distribution Width 12.9 % (11.5-14.5) Platelet Count 243 x10^3/uL (140-400) Neutrophils (%) (Auto) 79 % (31-73) Lymphocytes (%) (Auto) 11 % (24-48) Monocytes (%) (Auto) 10 % (0-9) Eosinophils (%) (Auto) 0 % (0-3) Basophils (%) (Auto) 0 % (0-3) Neutrophils # (Auto) 9.0 x10^3uL (1.8-7.7) Lymphocytes # (Auto) 1.2 x10^3/uL (1.0-4.8) Monocytes # (Auto) 1.2 x10^3/uL (0.0-1.1) Eosinophils # (Auto) 0.0 x10^3/uL (0.0-0.7) Basophils # (Auto) 0.0 x10^3/uL (0.0-0.2) Sodium Level 135 mmol/L (136-145) Potassium Level 3.2 mmol/L (3.5-5.1) Chloride Level 100 mmol/L (98-107) Carbon Dioxide Level 25 mmol/L (21-32) Anion Gap 10 (6-14) Blood Urea Nitrogen 4 mg/dL (7-20) Creatinine 0.6 mg/dL (0.6-1.0) Estimated GFR (Cockcroft-Gault) 113.1 Glucose Level 126 mg/dL (70-99) Calcium Level 8.4 mg/dL (8.5-10.1) Laboratory Tests Test 04/19/17 12:41 04/20/17 09:15 Glucose (Fingerstick) 97 mg/dL (70-99) White Blood Count 11.5 x10^3/uL (4.0-11.0) Red Blood Count 4.16 x10^6/uL (3.50-5.40) Hemoglobin 12.4 g/dL (12.0-15.5) Hematocrit 35.6 % (36.0-47.0) Mean Corpuscular Volume 86 fL (79-100) Mean Corpuscular Hemoglobin 30 pg (25-35) Mean Corpuscular Hemoglobin Concent 35 g/dL (31-37) Red Cell Distribution Width 12.9 % (11.5-14.5) Platelet Count 243 x10^3/uL (140-400) Neutrophils (%) (Auto) 79 % (31-73) Lymphocytes (%) (Auto) 11 % (24-48) Monocytes (%) (Auto) 10 % (0-9) Eosinophils (%) (Auto) 0 % (0-3) Basophils (%) (Auto) 0 % (0-3) Neutrophils # (Auto) 9.0 x10^3uL (1.8-7.7) Lymphocytes # (Auto) 1.2 x10^3/uL (1.0-4.8) Monocytes # (Auto) 1.2 x10^3/uL (0.0-1.1) Eosinophils # (Auto) 0.0 x10^3/uL (0.0-0.7) Basophils # (Auto) 0.0 x10^3/uL (0.0-0.2) Sodium Level 135 mmol/L (136-145) Potassium Level 3.2 mmol/L (3.5-5.1) Chloride Level 100 mmol/L (98-107) Carbon Dioxide Level 25 mmol/L (21-32) Anion Gap 10 (6-14) Blood Urea Nitrogen 4 mg/dL (7-20) Creatinine 0.6 mg/dL (0.6-1.0) Estimated GFR (Cockcroft-Gault) 113.1 Glucose Level 126 mg/dL (70-99) Calcium Level 8.4 mg/dL (8.5-10.1) Medications Current Medications Ondansetron HCl (Zofran) 4 mg 1X ONCE IV Last administered on 04/19/17t 01:26 ; Start 04/19/17 at 02:00; Stop 04/19/17 at 02:01; Status DC Sodium Chloride 1,000 ml @ 1,000 mls/hr 1X ONCE IV Last administered on 01:26; Start 04/19/17 at 02:00; Stop 04/19/17 at 02:59; Status DC Morphine Sulfate 4 mg 1X ONCE IV Last administered on 04/19/17 01:26; Start 04/19/17 at 02:00; Stop 04/19/17 at 02:01; Status DC Morphine Sulfate 4 mg PRN Q15MIN PRN IV SEVERE PAIN Last administered on 04:18; Start 04/19/17 at 02:00; Stop 04/19/17 at 12:17; Status DC Promethazine HCl 12.5 mg/Sodium Chloride 50.5 ml @ 151.5 mls/ hr ONCE ONCE IV Last administered on 04/19/17 02:52; Start 04/19/17 at 03:00; Stop 04/19/17 at 03:19; Status DC Piperacillin Sod/ Tazobactam Sod 3.375 gm/Sodium Chloride 50 ml @ 100 mls/hr 1X ONCE IV Last administered on 04/19/17 03:30; Start 04/19/17 at 03:00; Stop 04/19/17 at 03:29; Status DC Ondansetron HCl (Zofran) 4 mg PRN Q8HRS PRN IV NAUSEA/VOMITING Last administered on 04/19/17 09:01; Start 04/19/17 at 03:15; Stop 04/20/17 at 03:14 ; Status DC Morphine Sulfate 2 mg PRN Q2HR PRN IV SEVERE PAIN Last administered on 09:02; Start 04/19/17 at 03:15; Stop 04/20/17 at 03:14; Status DC Sodium Chloride 1,000 ml @ 150 mls/hr Q6H40M IV Last administered on 00:42; Start 04/19/17 at 03:30; Stop 04/20/17 at 03:29; Status DC Piperacillin Sod/ Tazobactam Sod 3.375 gm/Sodium Chloride 50 ml @ 100 mls/hr Q8HRS IV Last administered on 04/20/17 06:19; Start 04/19/17 at 06:00 Cefoxitin Sodium 50 ml @ 100 mls/hr OC PROC IV Last administered on 13:15; Start 04/19/17 at 09:00; Stop 04/19/17 at 09:29; Status DC Ondansetron HCl (Zofran) 4 mg PRN Q6HRS PRN IV NAUSEA/VOMITING; Start 04/19/17 at 10:30; Stop 04/20/17 at 10:29; Status DC Fentanyl Citrate (Fentanyl 2ml Vial) 25 mcg PRN Q5MIN PRN IV MILD PAIN; Start 04/19/17 at 10:30; Stop 04/20/17 at 10:29; Status DC Fentanyl Citrate (Fentanyl 2ml Vial) 50 mcg PRN Q5MIN PRN IV MODERATE PAIN Last administered on 04/19/17 15:14; Start 04/19/17 at 10:30; Stop 04/20/17 at 10:29; Status DC Morphine Sulfate 1 mg PRN Q10MIN PRN IV SEVERE PAIN; Start 04/19/17 at 10:30; Stop 04/20/17 at 10:29; Status DC Ringer's Solution 1,000 ml @ 30 mls/hr Q24H IV Last administered on 04/19/17 12:23; Start 04/19/17 at 10:17; Stop 04/19/17 at 22:16; Status DC Lidocaine HCl 2 ml PRN 1X PRN ID PRIOR TO IV START; Start 04/19/17 at 10:30; Stop 04/20/17 at 10:29; Status DC Hydromorphone HCl (Dilaudid) 0.5 mg PRN Q10MIN PRN IV SEV PAIN, Second choice; Start 04/19/17 at 10:30; Stop 04/20/17 at 10:29; Status DC Prochlorperazine Edisylate (Compazine) 5 mg PACU PRN PRN IV NAUSEA, MRX1 Last administered on 04/19/17 14:20; Start 04/19/17 at 10:30; Stop 04/20/17 at 10:29 ; Status DC Acetaminophen (Tylenol) 650 mg PRN Q6HRS PRN PO FEVER; Start 04/19/17 at 12:15 Ondansetron HCl (Zofran) 4 mg PRN Q6HRS PRN IV NAUSEA/VOMITING Last administered on 04/20/17 06:18; Start 04/19/17 at 12:15 Morphine Sulfate 2 mg PRN Q2HR PRN IV PAIN; Start 04/19/17 at 12:15; Stop 04/19 at 12:18; Status DC Tramadol HCl (Ultram) 50 mg PRN Q6HRS PRN PO PAIN Last administered on t 00:41; Start 04/19/17 at 12:15 Hydralazine HCl (Apresoline) 10 mg PRN Q4HRS PRN IVP ELEVATED BP, SEE COMMENTS ; Start 04/19/17 at 12:15 Docusate Sodium (Colace) 100 mg PRN DAILY PRN PO CONSTIPATION; Start 04/19/17 at 12:15 Morphine Sulfate 2 mg PRN Q2HR PRN IV PAIN; Start 04/19/17 at 12:30 Fentanyl Citrate (Fentanyl 2ml Vial) 100 mcg STK-MED ONCE .ROUTE ; Start at 12:45; Stop 04/19/17 at 12:48; Status DC Fentanyl Citrate (Fentanyl 2ml Vial) 50 mcg PACU PRN PRN IV PAIN Last administered on 04/19/17t 13:03; Start 04/19/17 at 13:00 Midazolam HCl (Versed) 2 mg STK-MED ONCE .ROUTE ; Start 04/19/17 at 12:54; Stop 04/19/17 at 12:55; Status DC Fentanyl Citrate (Fentanyl 2ml Vial) 100 mcg STK-MED ONCE .ROUTE ; Start at 12:54; Stop 04/19/17 at 12:55; Status DC Desflurane (Suprane) 60 ml STK-MED ONCE IH ; Start 04/19/17 at 12:54; Stop 04/19 at 12:55; Status DC Propofol 20 ml @ As Directed STK-MED ONCE IV ; Start 04/19/17 at 12:54; Stop at 12:55; Status DC Dexamethasone Sodium Phosphate (Decadron) 20 mg STK-MED ONCE .ROUTE ; Start at 12:55; Stop 04/19/17 at 12:56; Status DC Ondansetron HCl (Zofran) 4 mg STK-MED ONCE .ROUTE ; Start 04/19/17 at 12:55; Stop 04/19/17 at 12:56; Status DC Lidocaine HCl (Lidocaine Pf 2% Vial) 5 ml STK-MED ONCE .ROUTE ; Start 04/19/17 at 12:55; Stop 04/19/17 at 12:56; Status DC Bupivacaine HCl/ Epinephrine Bitart (Sensorcain-Mpf Epi 0.5%-[id number]) 30 ml STK -MED ONCE .ROUTE Last administered on 04/19/17 14:19; Start 04/19/17 at 12:56 ; Stop 04/19/17 at 12:57; Status DC Rocuronium [place] (Zemuron) 100 mg STK-MED ONCE .ROUTE ; Start 04/19/17 at 12: 56; Stop 04/19/17 at 12:57; Status DC Neostigmine Methylsulfate (Bloxiverz) 10 mg STK-MED ONCE .ROUTE ; Start at 13:38; Stop 04/19/17 at 13:39; Status DC Glycopyrrolate (Robinul) 1 mg STK-MED ONCE .ROUTE ; Start 04/19/17 at 13:39; Stop 04/19/17 at 13:40; Status DC Prochlorperazine Edisylate (Compazine) 10 mg STK-MED ONCE .ROUTE ; Start at 14:15; Stop 04/19/17 at 14:16; Status DC Fentanyl Citrate (Fentanyl 2ml Vial) 100 mcg STK-MED ONCE .ROUTE ; Start at 14:16; Stop 04/19/17 at 14:17; Status DC Sodium Chloride (Normal Saline Flush) 3 ml QSHIFT PRN IV AFTER MEDS AND BLOOD DRAWS; Start 04/19/17 at 14:15 Ringer's Solution 1,000 ml @ 100 mls/hr Q10H IV ; Start 04/19/17 at 15:00 Acetaminophen/ Hydrocodone Bitart (Lortab 5/325) 1 tab PRN Q4HRS PRN PO MILD PAIN Last administered on 04/20/17 08:28; Start 04/19/17 at 14:15 Docusate Sodium (Colace) 100 mg BID PO Last administered on 04/20/17 08:28; Start 04/19/17 at 21:00 Ondansetron HCl (Zofran) 4 mg PRN Q6HRS PRN IV NAUESA, 1ST CHOICE; Start at 14:15; Status UNV Levofloxacin/ Dextrose 150 ml @ As Directed STK-MED ONCE IV ; Start 04/20/17 at 00:51; Stop 04/20/17 at 00:52; Status DC Vitals/I & O Vital Sign - Last 24 Hours 04/19/17 04/19/17 04/19/17 04/19/17 12:18 12:49 13:03 14:02 Temp 97.7 98.0 97.7 98.0 Pulse 95 53 Resp 15 15 15 16 B/P (MAP) 113/76 91/60 Pulse Ox 100 100 100 100 O2 Delivery Room Air Room Air Room Air Simple Mask O2 Flow Rate 10 04/19/17 04/19/17 04/19/17 04/19/17 14:17 14:30 14:32 14:47 Pulse 54 54 62 Resp 16 15 16 14 B/P (MAP) 97/65 103/60 116/67 Pulse Ox 100 100 98 O2 Delivery Room Air Room Air Room Air Room Air 04/19/17 04/19/17 04/19/17 04/19/17 14:53 15:02 15:27 15:45 Temp 98.0 97.6 98.0 97.6 Pulse 72 91 93 Resp 17 16 16 16 B/P (MAP) 113/60 117/75 (89) 113/74 (87) Pulse Ox 98 99 97 O2 Delivery Room Air Room Air Room Air Room Air 04/19/17 04/19/17 04/19/17 04/19/17 16:00 16:15 16:30 16:45 Pulse 90 86 84 87 Resp 16 16 16 16 B/P (MAP) 120/80 (93) 126/79 (95) 133/74 (93) Pulse Ox 98 98 98 97 O2 Delivery Room Air Room Air Room Air Room Air 04/19/17 04/19/17 04/19/17 04/19/17 17:00 19:00 19:46 20:00 Temp 97.5 97.5 Pulse 87 94 Resp 16 16 16 B/P (MAP) 118/79 (92) 127/85 (99) Pulse Ox 96 100 O2 Delivery Room Air Room Air Room Air Room Air 8/23/17 04/19/17 04/20/17 04/20/17 20:45 23:00 00:41 01:40 Temp 98.6 98.6 Pulse 88 Resp 16 18 16 16 B/P (MAP) 125/79 (94) Pulse Ox 98 O2 Delivery Room Air Room Air Room Air Room Air 04/20/17 04/20/17 04/20/17 04/20/17 03:00 07:39 08:00 08:28 Temp 97.9 97.7 97.9 97.7 Pulse 83 81 Resp 18 18 16 B/P (MAP) 119/80 (93) 132/84 (100) Pulse Ox 97 100 O2 Delivery Room Air Room Air Room Air Room Air Intake and Output 04/19/17 04/19/17 04/20/17 15:00 23:00 07:00 Intake Total 730 ml 1361 ml Output Total 100 ml Balance 630 ml 1361 ml RODDY HAAS MD Apr 20, 2017 11:08
[2017-04-20] MEDS ORDERED: MAGNESIUM HYDROXIDE 2,400 MG/30 ML ORAL.SUSP. PO PRN ×2 (11:15→12:00)
[2017-04-20 11:28] VITALS: BP 128/80
[2017-04-20] MEDS ORDERED: KETOROLAC TROMETHAMINE 30 MG/ML INJ. IV ONE (11:30)
[2017-04-20] MEDS ORDERED: KETOROLAC 15 MG/ML VIAL. IV PRN (11:30)
[2017-04-20] MEDS ORDERED: MAGNESIUM HYDROXIDE 2,400 MG/30 ML ORAL.SUSP. PO ONE ×2 (11:45→12:00)
[2017-04-20] MEDS ORDERED: POLYETHYLENE GLYCOL 3350 17 GM PACKET. PO ONE (12:00)
[2017-04-20] MEDS ORDERED: POLYETHYLENE GLYCOL 3350 17 GM PACKET. PO SCH (12:00)
--- NOTE | 2017-04-20 12:52 | PDOC ---
SURGICAL PROGRESS NOTE Subjective n/v this am some flatus pain managed Vital Signs Vital Signs Date Time Temp Pulse Resp B/P (MAP) Pulse Ox O2 Delivery O2 Flow Rate FiO2 04/20/17 11:28 97.9 76 18 128/80 (96) 99 Room Air 97.9 04/19/17 14:02 10 I&O Intake and Output 04/20/17 07:00 Intake Total 2091 ml Output Total 100 ml Balance 1991 ml Intake Oral 430 ml IV Total 1661 ml Output Emesis 100 ml # Voids 5 General: Alert, Oriented X3, Cooperative, No acute distress Abdomen: Soft, Other (lap sites c/d/i, no erythema ) Labs Laboratory Tests Test 04/19/17 00:01 04/19/17 00:23 04/19/17 00:48 04/19/17 12:41 Bedside Urine HCG, Qualitative Hcg negative (Negative) White Blood Count 12.0 x10^3/uL (4.0-11.0) Red Blood Count 4.41 x10^6/uL (3.50-5.40) Hemoglobin 13.3 g/dL (12.0-15.5) Hematocrit 38.5 % (36.0-47.0) Mean Corpuscular Volume 87 fL (79-100) Mean Corpuscular Hemoglobin 30 pg (25-35) Mean Corpuscular Hemoglobin Concent 35 g/dL (31-37) Red Cell Distribution Width 12.7 % (11.5-14.5) Platelet Count 277 x10^3/uL (140-400) Neutrophils (%) (Auto) 85 % (31-73) Lymphocytes (%) (Auto) 8 % (24-48) Monocytes (%) (Auto) 6 % (0-9) Eosinophils (%) (Auto) 0 % (0-3) Basophils (%) (Auto) 0 % (0-3) Neutrophils # (Auto) 10.2 x10^3uL (1.8-7.7) Lymphocytes # (Auto) 1.0 x10^3/uL (1.0-4.8) Monocytes # (Auto) 0.7 x10^3/uL (0.0-1.1) Eosinophils # (Auto) 0.0 x10^3/uL (0.0-0.7) Basophils # (Auto) 0.0 x10^3/uL (0.0-0.2) Segmented Neutrophils % 83 % (35-66) Band Neutrophils % 2 % (0-9) Lymphocytes % 9 % (24-48) Monocytes % 6 % (0-10) Platelet Estimate Adequate (ADEQUATE) Sodium Level 136 mmol/L (136-145) Potassium Level 3.7 mmol/L (3.5-5.1) Chloride Level 100 mmol/L (98-107) Carbon Dioxide Level 29 mmol/L (21-32) Anion Gap 7 (6-14) Blood Urea Nitrogen 9 mg/dL (7-20) Creatinine 0.8 mg/dL (0.6-1.0) Estimated GFR (Cockcroft-Gault) 81.2 Glucose Level 140 mg/dL (70-99) Calcium Level 8.9 mg/dL (8.5-10.1) Urine Collection Type Unknown Urine Color Yellow Urine Clarity Clear Urine pH 8.0 Urine Specific [place] 1.020 Urine Protein Negative mg/dL (NEG-TRACE) Urine Glucose (UA) Negative mg/dL (NEG) Urine Ketones (Stick) Trace mg/dL (NEG) Urine Blood Negative (NEG) Urine Nitrite Negative (NEG) Urine Bilirubin Negative (NEG) Urine Urobilinogen Dipstick 0.2 mg/dL (0.2 mg/dL) Urine Leukocyte Esterase Negative (NEG) Urine RBC 0 /HPF (0-2) Urine WBC 1-4 /HPF (0-4) Urine Squamous Epithelial Cells Few /LPF Urine Bacteria Few /HPF (0-FEW) Urine Mucus Slight /LPF Glucose (Fingerstick) 97 mg/dL (70-99) Test 04/20/17 09:15 White Blood Count 11.5 x10^3/uL (4.0-11.0) Red Blood Count 4.16 x10^6/uL (3.50-5.40) Hemoglobin 12.4 g/dL (12.0-15.5) Hematocrit 35.6 % (36.0-47.0) Mean Corpuscular Volume 86 fL (79-100) Mean Corpuscular Hemoglobin 30 pg (25-35) Mean Corpuscular Hemoglobin Concent 35 g/dL (31-37) Red Cell Distribution Width 12.9 % (11.5-14.5) Platelet Count 243 x10^3/uL (140-400) Neutrophils (%) (Auto) 79 % (31-73) Lymphocytes (%) (Auto) 11 % (24-48) Monocytes (%) (Auto) 10 % (0-9) Eosinophils (%) (Auto) 0 % (0-3) Basophils (%) (Auto) 0 % (0-3) Neutrophils # (Auto) 9.0 x10^3uL (1.8-7.7) Lymphocytes # (Auto) 1.2 x10^3/uL (1.0-4.8) Monocytes # (Auto) 1.2 x10^3/uL (0.0-1.1) Eosinophils # (Auto) 0.0 x10^3/uL (0.0-0.7) Basophils # (Auto) 0.0 x10^3/uL (0.0-0.2) Sodium Level 135 mmol/L (136-145) Potassium Level 3.2 mmol/L (3.5-5.1) Chloride Level 100 mmol/L (98-107) Carbon Dioxide Level 25 mmol/L (21-32) Anion Gap 10 (6-14) Blood Urea Nitrogen 4 mg/dL (7-20) Creatinine 0.6 mg/dL (0.6-1.0) Estimated GFR (Cockcroft-Gault) 113.1 Glucose Level 126 mg/dL (70-99) Calcium Level 8.4 mg/dL (8.5-10.1) Laboratory Tests Test 04/20/17 09:15 White Blood Count 11.5 x10^3/uL (4.0-11.0) Red Blood Count 4.16 x10^6/uL (3.50-5.40) Hemoglobin 12.4 g/dL (12.0-15.5) Hematocrit 35.6 % (36.0-47.0) Mean Corpuscular Volume 86 fL (79-100) Mean Corpuscular Hemoglobin 30 pg (25-35) Mean Corpuscular Hemoglobin Concent 35 g/dL (31-37) Red Cell Distribution Width 12.9 % (11.5-14.5) Platelet Count 243 x10^3/uL (140-400) Neutrophils (%) (Auto) 79 % (31-73) Lymphocytes (%) (Auto) 11 % (24-48) Monocytes (%) (Auto) 10 % (0-9) Eosinophils (%) (Auto) 0 % (0-3) Basophils (%) (Auto) 0 % (0-3) Neutrophils # (Auto) 9.0 x10^3uL (1.8-7.7) Lymphocytes # (Auto) 1.2 x10^3/uL (1.0-4.8) Monocytes # (Auto) 1.2 x10^3/uL (0.0-1.1) Eosinophils # (Auto) 0.0 x10^3/uL (0.0-0.7) Basophils # (Auto) 0.0 x10^3/uL (0.0-0.2) Sodium Level 135 mmol/L (136-145) Potassium Level 3.2 mmol/L (3.5-5.1) Chloride Level 100 mmol/L (98-107) Carbon Dioxide Level 25 mmol/L (21-32) Anion Gap 10 (6-14) Blood Urea Nitrogen 4 mg/dL (7-20) Creatinine 0.6 mg/dL (0.6-1.0) Estimated GFR (Cockcroft-Gault) 113.1 Glucose Level 126 mg/dL (70-99) Calcium Level 8.4 mg/dL (8.5-10.1) Problem List s/p lap appy await improvement in PO intake IS, ambulate Problems: KIRSTEN HERNANDEZ APRN Apr 20, 2017 12:52
[2017-04-20] MEDS: IBUPROFEN 600 MG TABLET. PO SCH ×2 (14:29→20:27)
[2017-04-20 15:32] VITALS: BP 114/71
[2017-04-20 19:00] VITALS: BP 101/63
[2017-04-20] MEDS ORDERED: SUMA100T3 PO (20:40)
[2017-04-20] MEDS ORDERED: DOXE50CA PO ×2 (20:40)
[2017-04-20] MEDS ORDERED: LORA5SOL7 PO (20:40)
[2017-04-20] MEDS ORDERED: DIPH25CA58 PO (20:40)
[2017-04-20] MEDS ORDERED: FEXO180T81 PO (20:40)
[2017-04-20] MEDS ORDERED: METO10TA81 PO (20:40)
[2017-04-20] MEDS ORDERED: B2/M1TAB PO (20:40)
[2017-04-20] MEDS ORDERED: MELO7.5O PO (20:40)
[2017-04-20] MEDS ORDERED: ONAB100V IJ (20:40)
[2017-04-20] MEDS ORDERED: BUTT75CA PO (20:40)
[2017-04-20] MEDS ORDERED: CETI10TA22 PO (20:40)
[2017-04-20] MEDS ORDERED: DOCUSATE SODIUM 100 MG CAPSULE. PO SCH (21:00)
[2017-04-20 23:15] VITALS: BP 102/58
[2017-04-21 03:00] VITALS: BP 111/72
[2017-04-21] MEDS: PIPERACILLIN/TAZOBACTAM 3.375 GM in IV NORMAL SALINE 50ML 50 ML IV SCH (06:19)
[2017-04-21] MEDS: traMADol 50 MG TABLET PO PRN (06:24)
[2017-04-21 07:00] VITALS: BP 107/69
[2017-04-21] MEDS ORDERED: POLYETHYLENE GLYCOL 3350 17 GM PACKET. PO SCH (09:00)
[2017-04-21] MEDS: IBUPROFEN 600 MG TABLET. PO SCH (09:29)
[2017-04-21] MEDS: DOCUSATE SODIUM 100 MG CAPSULE. PO SCH (09:29)
--- NOTE | 2017-04-21 09:45 | PDOC ---
SURGICAL PROGRESS NOTE Subjective Pt feels much better, lyndsey PO well, passing flatus, min pain Vital Signs Vital Signs Date Time Temp Pulse Resp B/P (MAP) Pulse Ox O2 Delivery O2 Flow Rate FiO2 04/21/17 07:45 Room Air 04/21/17 07:00 98.4 91 19 107/69 (82) 95 98.4 I&O Intake and Output 04/21/17 07:00 Intake Total 2250 ml Balance 2250 ml Intake Oral 2250 ml # Voids 10 General: Alert, Oriented X3, Cooperative, No acute distress Abdomen: Soft, No tenderness, Other (dressing c/d/i) Labs Laboratory Tests Test 04/19/17 12:41 04/20/17 09:15 Glucose (Fingerstick) 97 mg/dL (70-99) White Blood Count 11.5 x10^3/uL (4.0-11.0) Red Blood Count 4.16 x10^6/uL (3.50-5.40) Hemoglobin 12.4 g/dL (12.0-15.5) Hematocrit 35.6 % (36.0-47.0) Mean Corpuscular Volume 86 fL (79-100) Mean Corpuscular Hemoglobin 30 pg (25-35) Mean Corpuscular Hemoglobin Concent 35 g/dL (31-37) Red Cell Distribution Width 12.9 % (11.5-14.5) Platelet Count 243 x10^3/uL (140-400) Neutrophils (%) (Auto) 79 % (31-73) Lymphocytes (%) (Auto) 11 % (24-48) Monocytes (%) (Auto) 10 % (0-9) Eosinophils (%) (Auto) 0 % (0-3) Basophils (%) (Auto) 0 % (0-3) Neutrophils # (Auto) 9.0 x10^3uL (1.8-7.7) Lymphocytes # (Auto) 1.2 x10^3/uL (1.0-4.8) Monocytes # (Auto) 1.2 x10^3/uL (0.0-1.1) Eosinophils # (Auto) 0.0 x10^3/uL (0.0-0.7) Basophils # (Auto) 0.0 x10^3/uL (0.0-0.2) Sodium Level 135 mmol/L (136-145) Potassium Level 3.2 mmol/L (3.5-5.1) Chloride Level 100 mmol/L (98-107) Carbon Dioxide Level 25 mmol/L (21-32) Anion Gap 10 (6-14) Blood Urea Nitrogen 4 mg/dL (7-20) Creatinine 0.6 mg/dL (0.6-1.0) Estimated GFR (Cockcroft-Gault) 113.1 Glucose Level 126 mg/dL (70-99) Calcium Level 8.4 mg/dL (8.5-10.1) Problem List s/p lap appendectomy OK to d/c F/u with [facility] in two weeks Problems: MARCELA HOOVER MD Apr 21, 2017 09:45
--- NOTE | 2017-04-21 10:38 | PDOC3 ---
Discharge Summary Visit Information Date of Admission: Apr 19, 2017 Date of Discharge: Apr 21, 2017 Admitting Diagnosis Comment: 1. s/p lap appy POD # 2 (04/19) 2. Post op pain 3. COnstipation Brief Hospital Course Allergies Allergies Coded Allergies Type Severity Reaction Last Updated Verified Sulfa (Sulfonamide Antibiotics) Allergy Intermediate 04/19/17 Yes erythromycin base Allergy Intermediate 04/20/17 Yes latex Allergy Intermediate 04/20/17 Yes menthol Allergy Intermediate 04/20/17 Yes methyl salicylate Allergy Intermediate 04/20/17 Yes prednisone Allergy Intermediate 04/20/17 Yes Vital Signs Vital Signs Date Time Temp Pulse Resp B/P (MAP) Pulse Ox O2 Delivery O2 Flow Rate FiO2 04/21/17 07:55 Room Air 04/21/17 07:00 98.4 91 19 107/69 (82) 95 98.4 Lab Results Laboratory Tests Test 04/19/17 12:41 04/20/17 09:15 Glucose (Fingerstick) 97 mg/dL (70-99) White Blood Count 11.5 x10^3/uL (4.0-11.0) Red Blood Count 4.16 x10^6/uL (3.50-5.40) Hemoglobin 12.4 g/dL (12.0-15.5) Hematocrit 35.6 % (36.0-47.0) Mean Corpuscular Volume 86 fL (79-100) Mean Corpuscular Hemoglobin 30 pg (25-35) Mean Corpuscular Hemoglobin Concent 35 g/dL (31-37) Red Cell Distribution Width 12.9 % (11.5-14.5) Platelet Count 243 x10^3/uL (140-400) Neutrophils (%) (Auto) 79 % (31-73) Lymphocytes (%) (Auto) 11 % (24-48) Monocytes (%) (Auto) 10 % (0-9) Eosinophils (%) (Auto) 0 % (0-3) Basophils (%) (Auto) 0 % (0-3) Neutrophils # (Auto) 9.0 x10^3uL (1.8-7.7) Lymphocytes # (Auto) 1.2 x10^3/uL (1.0-4.8) Monocytes # (Auto) 1.2 x10^3/uL (0.0-1.1) Eosinophils # (Auto) 0.0 x10^3/uL (0.0-0.7) Basophils # (Auto) 0.0 x10^3/uL (0.0-0.2) Sodium Level 135 mmol/L (136-145) Potassium Level 3.2 mmol/L (3.5-5.1) Chloride Level 100 mmol/L (98-107) Carbon Dioxide Level 25 mmol/L (21-32) Anion Gap 10 (6-14) Blood Urea Nitrogen 4 mg/dL (7-20) Creatinine 0.6 mg/dL (0.6-1.0) Estimated GFR (Cockcroft-Gault) 113.1 Glucose Level 126 mg/dL (70-99) Calcium Level 8.4 mg/dL (8.5-10.1) Brief Hospital Course Ms. Washington is a 36 old female with 12 home meds (migraines and depression NOS), admitted for acute appy, UNderwent lap appy, Post op course remarkable for some post op pain and nausea. BEtter on POD # 2,. Ready for home , TRamadol on dc. 1-2 wk ff up Carmelina, [place] mother, time 32 mins, lots of qs about tramadol and her other home meds for interaction etc, Explained to this pleasant family, understands Pt seen and examined Discharge Information Condition at Discharge: Improved, Stable Disposition/Orders: D/C to Home Scheduled B2/Mag Cit & Ox/Feverfew (Migrelief Caplet), 1 EACH PO BID, (Reported) Butterbur Root Extract (Petadolex 75), 75 MG PO BID, (Reported) Cetirizine Hcl (Zyrtec), 10 MG PO BID, (Reported) Diphenhydramine Hcl (Benadryl), 50 MG PO HS, (Reported) Doxepin Hcl (Doxepin Hcl), 200 MG PO HS, (Reported) Doxepin Hcl (Doxepin Hcl), 75 MG PO DAILY, (Reported) Fexofenadine Hcl (Angelica Allergy), 180 MG PO DAILY, (Reported) Loratadine (Claritin), 5 MG PO HS, (Reported) Onabotulinumtoxina (Botox), 1.72 UNIT IJ [id number], (Reported) Scheduled PRN Meloxicam (Meloxicam), 7.5 MG PO PRN PRN for SEE COMMENTS, (Reported) Metoclopramide Hcl (Reglan), 10 MG PO PRN PRN for SEE COMMENTS, (Reported) Sumatriptan Succinate (Imitrex), 100 MG PO PRN PRN for MIGRAINE HEADACHE, ( Reported) RODDY HAAS MD Apr 21, 2017 10:37
[2017-04-21 11:00] VITALS: BP 121/77
--- NOTE | 2017-04-21 17:14 | PATHOLOGY ---
PATHOLOGY REPORT * * * * * * * * FINAL DIAGNOSIS: Appendix, laparoscopic appendectomy: - Acute appendicitis. COMMENT: There is no evidence of rupture. (JPM:mgr; 04/21/2017) REPORT ELECTRONICALLY SIGNED BY: Ventura Martinez M.D. DATE/TIME: 04/21/2017 17:13 * * * * * * * * GROSS PATHOLOGY: Received in formalin labeled "Padmini November, appendix," is an appendix measuring 9.4 cm in length and 1.3 cm in diameter with a moderate amount of attached mesoappendix. The serosal surface is cervantes maurer to dark purple cervatnes with focal wispy areas of cervantes maurer exudate. Sectioning reveals a widely dilated lumen throughout. The midportion shows a markedly edematous appendiceal wall. The distal tip is pinpoint. Clam Shucking Machine Tender sections are submitted in cassette A1. A single section of the distal tip is submitted in cassette A2. (JPM; 04/20/17) INITIAL CPT CODE(S): A; 20377 Professional services [place] [address] Technical services performed by [facility] at [address] [place] [address] [address] [address]. SPECIMEN(S) RECEIVED: A.Appendix CLINICAL HISTORY: Acute appendicitis PATIENT: JULIUS MESSINA /AGE: 412/05/1980 (Age: 36) PATIENT #: [id number] ALT CASE #: SPECIMEN COLLECTION DATE: 04/19/2017 SPECIMEN RECEIVED DATE: 04/20/2017 [facility] - [id number] [place] [address] - PHONE: [phone] * * * END OF REPORT * * *
== END 2017-04-21 13:00 | disposition home or self-care (01) | DRG 342 ==
LOC: ER 00:15 → 4 NORTH 03:00 → OBSVTOIN 10:42
PROVIDERS: ADMIT Internal Medicine; ATTEND Internal Medicine
PROC: 0DTJ4ZZ Resection of Appendix, Percutaneous Endoscopic Approach (ICD-10-PCS; principal; 2017-04-19 13:00)
DX: K35.80 Unspecified acute appendicitis (principal); R65.10 Systemic inflammatory response syndrome (SIRS) of non-infectious origin without acute organ dysfunction; G43.909 Migraine, unspecified, not intractable, without status migrainosus; K59.00 Constipation, unspecified; G89.18 Other acute postprocedural pain; F32.9 Major depressive disorder, single episode, unspecified; Z88.8 Allergy status to other drugs, medicaments and biological substances; Z88.1 Allergy status to other antibiotic agents; Z87.442 Personal history of urinary calculi; Z91.040 Latex allergy status
CPT/HCPCS: 36415; 74176; 80048; 81001; 81025; 82962; 85007; 85025; 88304; 96361; 96365; 96367; 96375; G0378; G0379; J0694; J0780; J1100; J1885; J2250; J2270; J2405; J2543; J2550; J2704; J2710; J3010; J3490; J7030; J7120; 99285-25; J2001